=== PATIENT | female | born 1990 | race Caucasian/White ===

== ENCOUNTER 2017-04-22 11:11 | Inpatient (IN) ==
[2017-04-22] MEDS ORDERED: ZOFRAN IV PRN (11:35)
[2017-04-22] MEDS ORDERED: PEPCID IV PRN (11:35)
[2017-04-22] MEDS ORDERED: STADOL IV PRN (11:35)
[2017-04-22] MEDS ORDERED: REGLAN PO ONE (11:35)
[2017-04-22] MEDS ORDERED: AMPICILLIN 2 GM/NS 2 GM/100 ML IVPB IV ONE (11:35)
[2017-04-22] MEDS ORDERED: LR 500 ML IV ONE (11:35)
[2017-04-22] MEDS ORDERED: PEPCID PO ONE (11:35)
[2017-04-22] MEDS ORDERED: TYLENOL PO PRN (11:35)
[2017-04-22] MEDS ORDERED: PITOCIN 30 UNITS/LR 30 UNITS/500 ML IV.SOLN IV SCH (11:35)
[2017-04-22] MEDS ORDERED: KEFZOL 1 GM/D5W 1 GM/50 ML IVPB IV PRN (11:35)
[2017-04-22] MEDS ORDERED: PEPCID PO PRN (11:35)
[2017-04-22] MEDS: LR 1,000 ML IV SCH ×2 (11:45→21:59)
[2017-04-22] MEDS ORDERED: SODIUM CHLORIDE 0.9% INJ SCH (11:45)
[2017-04-22 11:52] LABS: URINE SOURCE VOIDED
[2017-04-22 11:52] LABS: MANUAL DIFF NEEDED? NO
[2017-04-22 11:54] LABS: BILIRUBIN URINE NEGATIVE (NEGATIVE); BLOOD URINE 3+ (NEGATIVE); CLARITY CLEAR (CLEAR); COLOR YELLOW; GLUCOSE URINE NEGATIVE (NEGATIVE); LEUKOCYTES URINE 1+ (NEGATIVE); NITRITE URINE NEGATIVE (NEGATIVE); PH URINE 6.5; PROTEIN URINE 1+(30 mg/dL) mg/dL (NEGATIVE); SP GRAVITY URINE 1.015; UROBILINOGEN URINE NORMAL
[2017-04-22 11:54] LABS: BASO% 0.2 % (0.0-0.8); EOS# 0.05 X1000 (0.0-0.7); EOS% 0.4 % (0.0-10.0); HEMATOCRIT 39.9 % (37.0-47.0); HEMOGLOBIN 13.9 g/dL (12.0-16.0); IMM GRAN# 0.14 X1000 (0.0-0.04); LYMPH# 2.16 X1000 (1.2-3.4); MCH 31.3 PG (27-31); MCHC 34.8 g/dL (33-37); MCV 89.9 FL (81-99); MONO% 8.1 % (1.7-9.3); MPV 11.4 FL (7.4-10.4); NEUT% 74.3 % (42.2-75.2); PLT 159 X1000 (130-400); RBC 4.44 XMIL (4.2-5.4)
[2017-04-22] MEDS ORDERED: FENTANYL-BUPIV-NS 2 MCG-0.1% 200 ML EPIDURAL PRN (12:21)
[2017-04-22] MEDS ORDERED: MINERAL OIL ONE (16:15)
[2017-04-22] MEDS ORDERED: XYLOCAINE-MPF 1% INJ ONE (16:16)
[2017-04-22] MEDS: AMPICILLIN 1 GM/NS 1 GM/50 ML IVPB IV SCH (16:30)
[2017-04-22] MEDS ORDERED: PITOCIN 20 UNITS/LR 20 UNITS/1,000 ML IV.SOLN ONE (21:21)
[2017-04-22] MEDS ORDERED: BOOSTRIX VACCINE IM ONE (21:59)
[2017-04-22] MEDS ORDERED: MINERAL OIL PO PRN (21:59)
[2017-04-22] MEDS ORDERED: BENADRYL PO PRN (21:59)
[2017-04-22] MEDS ORDERED: PERI MEDS (DERMOPLAST/NUPERCAINAL/TUCKS) MISC PRN (21:59)
[2017-04-22] MEDS ORDERED: PITOCIN IM PRN (21:59)
[2017-04-22] MEDS ORDERED: NORCO-5 PO PRN (21:59)
[2017-04-22] MEDS ORDERED: AMBIEN PO PRN (21:59)
[2017-04-22] MEDS ORDERED: PITOCIN 20 UNITS/LR 20 UNITS/1,000 ML IV.SOLN IV SCH (21:59)
[2017-04-22] MEDS ORDERED: HYDROXYZINE IM PRN (21:59)
[2017-04-22] MEDS ORDERED: PITOCIN 30 UNITS/LR 30 UNITS/500 ML IV.SOLN IV ONE (21:59)
[2017-04-22] MEDS ORDERED: BENADRYL IV PRN (21:59)
[2017-04-22] MEDS ORDERED: M-M-R II VACCINE SUBQ ONE (21:59)
[2017-04-22] MEDS ORDERED: CYTOTEC PO PRN (21:59)
[2017-04-22] MEDS ORDERED: HYDROXYZINE PO PRN (21:59)
[2017-04-22] MEDS ORDERED: XYLOCAINE-MPF 1% INJ PRN (21:59)
[2017-04-23] MEDS: AMPICILLIN 1 GM/NS 1 GM/50 ML IVPB IV SCH (01:51)
--- NOTE | 2017-04-23 03:17 | OPERATIVE NOTE ---
PROCEDURE DATE: 04/22/2017 PREDELIVERY DIAGNOSES: 1. Intrauterine at term. 2. Active labor. POSTDELIVERY DIAGNOSES: 1. Intrauterine at term. 2. Active labor. PROCEDURE: Vaginal delivery. PHYSICIAN: Edgar Hogue MD. ANESTHESIA: Epidural by . FINDINGS: Viable female , 7 pounds 13 ounces, 9 and 10 Apgars. A second-degree midline laceration. COUNTS: All counts correct. ESTIMATED BLOOD LOSS: 100 mL. DESCRIPTION: Ms. Maynard is a 27-year-old, primigravida, estimated date of delivery 04/29/2017 by 1st trimester ultrasound and menstrual period who presents today in active labor. She is admitted, given an epidural anesthesia augmented with a slight bit of Pitocin. Reached complete dilation without distress or dystocia, before spontaneously rupturing, she rested for 20 minutes, then pushes for an hour at which point the baby is on the perineum. She was prepped and draped. The bed was broken down. Continued pushing. She delivered a viable female over a second- degree midline laceration. Once head delivered, shoulders and rest of the body delivered without difficulty and the was placed on mother's abdomen. Cord was doubly clamped and cut, and care of was taken over by nursery personnel. Cord blood was obtained and a 3-vessel cord was noted. Gentle traction on the cord resulted in delivery of an intact placenta after approximately 2 minutes. It was inspected and then discarded. Inspection of the vagina and perineum revealed a second-degree laceration so it was closed in the usual fashion with 3-0 Polysorb. Once this was done, vaginal sweep did not reveal any clots or foreign material. Had 1 needle, 1 vaginal pack, and 10 Ray-Tecs for all counts to be correct. Estimated blood loss 100 mL. Expect routine . cc: Edgar Hogue MD
[2017-04-23] MEDS ORDERED: PITOCIN 10 UNITS/LR 10 UNIT/1,000 ML IV.SOLN ONE (06:02)
[2017-04-23 06:04] LABS: MANUAL DIFF NEEDED? NO
[2017-04-23 06:16] LABS: BASO% 0.1 % (0.0-0.8); EOS# 0.03 X1000 (0.0-0.7); EOS% 0.2 % (0.0-10.0); HEMATOCRIT 32.5 % (37.0-47.0); HEMOGLOBIN 10.9 g/dL (12.0-16.0); IMM GRAN# 0.09 X1000 (0.0-0.04); IMM GRAN% 0.6 % (0.0-0.5); LYMPH# 1.63 X1000 (1.2-3.4); MCH 30.8 PG (27-31); MCHC 33.5 g/dL (33-37); MCV 91.8 FL (81-99); MONO# 1.53 X1000 (0.11-0.59); MONO% 9.4 % (1.7-9.3); MPV 11.4 FL (7.4-10.4); NEUT% 79.7 % (42.2-75.2); PLT 133 X1000 (130-400); RBC 3.54 XMIL (4.2-5.4)
[2017-04-23] MEDS: MOTRIN PO PRN ×2 (08:51→17:08)
[2017-04-23] MEDS: NORCO-10 PO PRN (08:51)
[2017-04-23] MEDS: PRECARE PO SCH (08:51)
--- NOTE | 2017-04-23 11:08 | PROGRESS NOTE ---
DATE: 04/23/2017 SUBJECTIVE: She is day 1. She is without complaints. She has not ambulated a lot this morning but she is tolerating p.o. OBJECTIVE: Vital signs: Her vital signs are stable. She is afebrile. Neck: Supple. Lungs: Clear. Heart: Regular sinus rhythm. Abdomen: Distended. Uterus is firm. Extremities: There is +1 lower extremity edema. LABS: Hemoglobin 10.9. ASSESSMENT: day 1. PLAN: Routine care. Expect discharge in the morning. I do want patient to have stool softeners and have advised against constipation and hard stools while the episiotomy is healing. cc: Edgar Hogue MD
[2017-04-23] MEDS ORDERED: PERICOLACE PO SCH (21:00)
[2017-04-24] MEDS: NORCO-10 PO PRN (00:55)
[2017-04-24] MEDS: MOTRIN PO PRN ×2 (00:55→09:55)
[2017-04-24] MEDS: PRECARE PO SCH (09:08)
[2017-04-24] MEDS ORDERED: EPIFOAM FOAM TOP PRN (09:29)
== END 2017-04-24 15:00 | disposition home or self-care (01) ==
LOC: P.OPLD 11:11 → P.LD 11:20
PROVIDERS: ADMIT Obstetrics & Gynecology; ATTEND Obstetrics & Gynecology